=== PATIENT | female | born 1985 | race Caucasian/White ===

== ENCOUNTER → 2017-10-26 | Day surgery (SDC) | payer OTHER ==
[2017-10-12 15:01] VITALS: BMI 43.0
--- NOTE | 2017-10-12 15:23 | PAT Medication Instructions ---
Service Date Oct 12, 2017. Current Home Medication List Fish Oil (Neon-3), 1 CAP PO QAM Ibuprofen Tab (Advil), 400 MG PO PRN Multivitamin (Multivitamin), 1 TAB PO QAM Medication Instructions For Your Scheduled Surgery -Contact your surgeon fo instructions for: Ibuprofen Tab (Advil), 400 MG PO PRN - Hold the following medications 2 weeks prior to surgery: Fish Oil (Neon-3), 1 CAP PO QAM - Hold the following medications the morning of surgery: Multivitamin (Multivitamin), 1 TAB PO QAM If you have any questions please call us at [phone] or [phone] or [phone]
[2017-10-12 16:04] LABS: BASO % 0.2 %; BASO ABS # 0.01 K/uL (0-0.2); EOS % 1.1 %; EOS ABS # 0.07 K/uL (0-0.5); HEMATOCRIT 39.2 % (37-47); HEMOGLOBIN 13.6 g/dL (12.0-16.0); IG# 0.01 K/uL (0.00-0.02); LYMPH % 29.4 %; LYMPH ABS # 1.94 K/uL (1.2-3.4); MEAN CELL VOLUME 86.7 fL (80-100); MEAN CORPUSCULAR HEMOGLOBIN 30.1 pg (25-34); MEAN CORPUSCULAR HGB CONC 34.7 g/dl (32-36); MEAN PLATELET VOLUME 9.2 fL (7.4-10.4); MONO % 4.7 %; MONO ABS # 0.31 K/uL (0.11-0.59); NEUT % 64.4 %; NEUT ABS # 4.25 K/uL (1.4-6.5); PLATELET COUNT 305 K/uL (130-400); RED CELL DISTRIBUTION WIDTH CV 12.7 % (11.5-14.5); RED CELL DISTRIBUTION WIDTH SD 40.7 fL (36.4-46.3); WHITE BLOOD COUNT 6.59 K/uL (4.8-10.8)
[2017-10-12 16:12] LABS: CALCIUM 8.8 mg/dl (8.5-10.1); CREATININE 0.89 mg/dl (0.60-1.20); POTASSIUM 4.3 mmol/L (3.5-5.1)
[~2017-10-26] VITALS: Ht 165.1 cm; Wt 118.9 kg
[~2017-10-26] MED LIST: ATROPINE SULFATE 0.1 MG/ML 5ML SYR IV PRN; CHECK SCOPOLAMINE PATCH PLACEMENT SCH; DEXAMETHASONE SOD INJ 4 MG/ML VIAL ONE; ESMOLOL HCL 10 MG/ML 10 ML VIAL ONE; EpHEDrine SULFATE INJ 50 MG/ML AMP IV PRN; FENTANYL CITRATE INJ 50 MCG/1 ML 2 ML VIAL IV PRN; FENTANYL CITRATE INJ 50 MCG/1 ML 2 ML VIAL ONE; FLUMAZENIL 0.1 MG/1 ML 10 ML VIAL IV PRN; HYDROmorphone INJ 2 MG/ML SYR/VIAL IV PRN; IBUP-103 PO; IBUPROFEN 600 MG TAB PO PRN; KETOROLAC TROMETHAMINE 30 MG/ML VIAL IV. PRN; KETOROLAC TROMETHAMINE 30 MG/ML VIAL ONE; LABETALOL HCL IV 5 MG/ML 20ML IV PRN; LACTATED RINGER'S 1000ML 1,000 ML IV SCH; LIDOCAINE HCL 2% 2 ML VIAL (20MG/ML) ONE; MEPERIDINE HCL 25 MG/ML CARP IV PRN; MIDAZOLAM HCL 1 MG/ML 2ML VIAL ONE; MTR600X PO; MULT-506 PO; NALOXONE HCL 0.4 MG/1 ML VIAL/CARP IV PRN; OMEG10007 PO; ONDANSETRON INJ 2 MG/ML 2 ML VIAL IV PRN; ONDANSETRON INJ 2 MG/ML 2 ML VIAL ONE; OXYCODONE/ACETAMINOPHEN 5-325 TAB PO PRN; PHENYLEPHRINE 100MCG/ML 5ML SYR IV PRN; PROPOFOL IV EMULSION 10 MG/ML 20 ML VIAL IV ONE; SCOPOLAMINE 1.5 MG TDSY TD SCH; SODIUM CHLORIDE 0.9% 1000ML 1,000 ML IV SCH
[2017-10-26 05:32] VITALS: BP 140/84; PULSE 83; TEMP 36.8; O2SAT 98; Ht 165.1 cm; Wt 118.9 kg
--- NOTE | 2017-10-26 06:41 | History & Physical Bridge Note ---
H&P Re-Evaluation Bridge Note: I have examined the patient, reviewed the History & Physical and in the interval since the performance of the History & Physical I have noted the following changes of clinical significance: No changes noted
--- NOTE | 2017-10-26 07:41 | [facility] Post Operative Brief Note ---
Immediate Operative Summary Operative Date Oct 26, 2017. Pre-Operative Diagnosis Abnormal uterine bleeding Post-Operative Diagnosis Abnormal uterine bleeding Procedure(s) Performed Ditation, Diagnostic Hysteroscopy Novasure endometrial Ablation Surgeon Dr. Rooney Fur Clipper Surgeon(s) None Estimated Blood Loss 5 ml Findings Consistent with Post-Op Diagnosis Fluids (cc crystalloids) 700 Specimens None per surgeon Drains None Anesthesia Type General Complication(s) none Disposition Disposition: Recovery Room / PACU
--- NOTE | 2017-10-26 07:52 | Discharge Instructions ---
Discharge Instructions Date of Service Oct 26, 2017. Admission Reason for Admission: Abnormal Uterine Bleeding Discharge Discharge Diagnosis / Problem: Post-op Discharge Goals Goal(s): Routine recovery after surgery Activity Recommendations Activity Limitations: as noted below ACTIVITY RECOMMENDATIONS: * Avoid tampons, douching, hot tubs, pools, and intercourse until bleeding has stopped. * May shower as usual. * No strenuous activity for 24-48 hours. After 24-48 hours, you can do anything you feel like doing (driving and sports are okay). RETURN TO SCHOOL/WORK: * You may return to school or work after 24 hours unless specified by your physician. DIET: * Resume previous diet. MEDICATIONS: Resume previous medications unless instructed otherwise by your surgeon. Ibuprofen 600 mg tablets every 4-6 hours as needed --OR-- Aleve 2 tablets every 8-12 hours as needed for post-operative discomfort Medications are over the counter. Tylenol may be used if above medications are contraindicated or not preferred. Medication should be taken with food or milk. do not take on an empty stomach. SPECIAL CARE INSTRUCTIONS: * Call office if you experience increased pelvic pain or discomfort not relieved by pain medicine, if you have foul smelling vaginal discharge, if you have bleeding that is heavier than a normal menstrual flow. If you are changing a maxi pad every 1- 2 hours, this is too heavy. vaginal spotting is normal for 1-2 weeks. FOLLOW UP VISIT: Post-operative visit appointment previously scheduled. Current Hospital Diet Patient's current hospital diet: Discharge Diet Recommended Diet: Regular Diet Procedures Procedures Performed: Dilation, Diagnostic Hysteroscopy, and Novasure Endometrial Ablation Pending Studies Studies pending at discharge: no Medical Emergencies . Who to Call and When: Medical Emergencies: If at any time you feel your situation is an emergency, please call 911 immediately. . Non-Emergent Contact Non-Emergency issues call your: Specialist . . "Provider Documentation" section prepared by Zaina Broderick. .
--- NOTE | 2017-10-26 08:02 | [facility] Operative Report ---
Operative Report Operative Date Oct 26, 2017. Pre-Operative Diagnosis Abnormal uterine bleeding Post-Operative Diagnosis Abnormal uterine bleeding Procedure(s) Performed Dilation, Diagnostic Hysteroscopy, and Novasure Endometrial Ablation Surgeon Dr. Rooney Business Quality Assurance Analyst Surgeon(s) None Estimated Blood Loss 5 ml Findings 1. Uterus anteverted and sounded to 9 cm 2. Bilateral tubal ostia visualized 3. Moderate amount of endometrial tissue 4. No lesions, fibroids or polyps noted Fluids 700 Specimens None per surgeon Drains None Anesthesia Type General Complication(s) none Disposition Recovery Room / PACU Indications 32 yo with abnormal uterine bleeding desiring surgical management via endometrial ablation. Description of Procedure This is a 32-year-old para 2, history of tubal ligation with abnormal uterine bleeding. Risks, benefits and alternatives discussed with the patient at length. Informed consent was obtained. The patient was taken to the operating room. General anesthesia was obtained without difficulty. She was prepped and draped in the normal sterile fashion in lithotomy position in yellow fin stirrups. Examination under anesthesia revealed a normal size anteverted uterus. No adnexal masses were palpable. A weighted speculum was placed inside the vagina. The anterior lip of the cervix was grasped with single-tooth tenaculum. The cervix was sounded to 4 cm. The uterus was sounded to 5 cm. The cervix was gently dilated to ensure reduction of diagnostic hysteroscope. Proliferative endometrium were noted. Both ostia were seen. The hysteroscope was removed. NovaSure device was then introduced inside the uterus. Uterine width was assessed to be 4.9. The cavity assessed and labeled. The cavity was ablated at a power of 135w. Following, the NovaSure was removed. Time of ablation 1 minute 19 seconds. The hysteroscope was reintroduced. The entire endometrial cavity was noted to be completely ablated. All instruments removed from the patients vagina. Hemostasis was noted from the tenaculum site. The patient was taken to the recovery room in stable condition. I attest to the content of the Intraoperative Record and any orders documented therein. Any exceptions are noted below.
--- NOTE | 2017-10-26 08:26 | Anesthesiology Progress Note ---
Anesthesia Post Op Note Date & Time Oct 26, 2017 at 08:26 Vital Signs Pain Intensity: 2 Vital Signs Past 12 Hours Date Time Temp Pulse Resp B/P (MAP) Pulse Ox O2 Delivery O2 Flow Rate FiO2 10/26/17 08:20 36.7 86 17 151/91 98 Room Air 10/26/17 08:10 89 16 132/89 99 Room Air 10/26/17 08:00 88 11 135/89 100 Oxymask 9 10/26/17 07:53 89 15 136/89 100 Oxymask 9 10/26/17 07:43 36.3 94 12 130/90 100 Oxymask 9 10/26/17 05:32 36.8 83 16 140/84 (102) 98 Room Air Notes Mental Status: alert / awake / arousable, participated in evaluation Pt Amnestic to Procedure: Yes Nausea / Vomiting: adequately controlled Pain: adequately controlled Airway Patency, RR, SpO2: stable & adequate BP & HR: stable & adequate Hydration State: stable & adequate Anesthetic Complications: no major complications apparent
[2017-10-26 09:30] VITALS: BP 115/77; PULSE 68; TEMP 36.5; O2SAT 97
== END | disposition home or self-care (01) ==
LOC: C.ACU 05:04
PROVIDERS: ATTEND Obstetrics & Gynecology Obstetrics
DX: N93.9 Abnormal uterine and vaginal bleeding, unspecified (principal); J45.909 Unspecified asthma, uncomplicated; E66.9 Obesity, unspecified; Z87.442 Personal history of urinary calculi; Z83.3 Family history of diabetes mellitus; Z82.49 Family history of ischemic heart disease and other diseases of the circulatory system; Z82.3 Family history of stroke